=== PATIENT | male | born 1970 | race Caucasian/White ===

== ENCOUNTER 2016-12-25 12:32 | Emergency (ER) | payer SELFPAY ==
[~2016-12-25] VITALS: Ht 175.3 cm; Wt 90.7 kg
[2016-12-25 13:11] VITALS: BP 133/79
--- NOTE | 2016-12-25 13:50 | NUR ---
Patient to bed 03.
--- NOTE | 2016-12-25 14:14 | NUR ---
Dr. Castelan evaluating patient at bedside.
--- NOTE | 2016-12-25 14:15 | NUR ---
PATIENT PRESENTS TO ED WITH BUG BITES TO BODY X1 DAY AND COUGH X3 WEEKS; DENIES N/V/D; SKIN IS PINK/WARM/DRY; AAOX4 WITH EVEN AND STEADY GAIT; LUNGS CLEAR BL; HR EVEN AND REGULAR; PT DENIES ANY FEVER, CP, OR SOB AT THIS TIME; PATIENT STATES PAIN OF 0/10 AT THIS TIME; VSS; PATIENT POSITIONED FOR COMFORT; HOB ELEVATED; BEDRAILS UP X2; BED DOWN. ER MD MADE AWARE OF PT STATUS.
[2016-12-25 15:00] VITALS: BP 133/79
--- NOTE | 2016-12-25 15:00 | NUR ---
Patient discharged with v/s stable. Written and verbal after care instructions given and explained. Patient alert, oriented and verbalized understanding of instructions. Ambulatory with steady gait. All questions addressed prior to discharge. ID band removed. Patient advised to follow up with PMD. Rx of BENADRYL, BACTRIM, MOTRIN given. Patient educated on indication of medication including possible reaction and side effects. Opportunity to ask questions provided and answered.
== END 2016-12-25 15:00 | disposition home or self-care (01) ==
LOC: MED 12:32
DX: S00.262A Insect bite (nonvenomous) of left eyelid and periocular area, initial encounter (principal); S50.362A Insect bite (nonvenomous) of left elbow, initial encounter; J06.9 Acute upper respiratory infection, unspecified; W57.XXXA Bitten or stung by nonvenomous insect and other nonvenomous arthropods, initial encounter; Y93.89 Activity, other specified; Y92.89 Other specified places as the place of occurrence of the external cause; Y99.8 Other external cause status

== ENCOUNTER 2020-11-06 17:08 | Emergency (ER) | payer MEDICAID ==
[~2020-11-06] VITALS: Ht 175.3 cm; Wt 90.7 kg
[2020-11-06 17:12] VITALS: BP 118/71
--- NOTE | 2020-11-06 17:16 | NUR ---
Pt ambulated to ER bed 7 with a steady gait.
--- NOTE | 2020-11-06 17:22 | NUR ---
TRAVIS Moore at pt bedside for evaluation.
--- NOTE | 2020-11-06 17:31 | NUR ---
50 Y/O MALE. C/O RIGHT LOWER LEG PAIN, REDNESS & SWELLING X 4 DAYS. PT IS A [employer] WORK[employer] AND WAS WORKING UNDER A HOUSE 4 DAYS AGO. LEG BECAME RED, SWOLLEN, AND ITCHY.PT SCRATCHED HIS LEG AND NOW HAS OPEN ABRASION ON RIGHT LOWER LEG, TOP OF RIGHT FOOT, AND RIGHT ANKLE. PEDAL PULSES EQUAL BILATELLY +2, <3 SECONDS CAP REFILL. PT IS A&O x4, NORMAL RESPIRATIONS, BED LOCKED AND IN LOWEST POSTION. PT STATES HE DOES NOT KNOW LAST TETANUS SHOT. NKA PMH: ASTHMA
[2020-11-06] MEDS ORDERED: SULFAMETH/TRIMETH DS 800/160MG 1 TAB PO ONE (18:25)
[2020-11-06] MEDS ORDERED: ceFAZolin 1,000 MG VIAL IM ONE (18:25)
[2020-11-06 19:27] VITALS: BP 118/71
--- NOTE | 2020-11-06 19:27 | NUR ---
Patient discharged with v/s stable. Written and verbal after care instructions given and explained. Patient alert, oriented and verbalized understanding of instructions. Ambulatory with steady gait. All questions addressed prior to discharge. ID band removed. Patient advised to follow up with PMD. Rx of KEFLEX AND BACTRIM given. Patient educated on indication of medication including possible reaction and side effects. Opportunity to ask questions provided and answered.
--- NOTE | 2020-11-06 19:27 | NUR ---
Triston portillo in [facility] - 11/06/20 at 1934 by [email or web address] REPORT RECEIVED FROM JOS ROBLES FOR CONTINUITY OF CARE
--- NOTE | 2020-11-06 19:27 | NUR ---
GAVE REPORT TO TRAVIS FRANCOIS. TRANSFER OF CARE AT THIS TIME.
== END 2020-11-06 19:27 | disposition home or self-care (01) ==
LOC: MED 17:08
DX: L03.115 Cellulitis of right lower limb (principal); J45.909 Unspecified asthma, uncomplicated
CPT/HCPCS: 93971; 96374; 99284; J0690